=== PATIENT | male | born 1965 | race Caucasian/White ===

== ENCOUNTER 2016-11-21 00:45 | Emergency (ER) | payer OTHER ==
[~2016-11-21] VITALS: Ht 170.1 cm; Wt 81.6 kg
[~2016-11-21 00:45] MED LIST: 'PARAFON FORTE500 M1 PO; AMOXICILLIN500 MG PO; ANAPROX DS550 MG PO; CLINDAMYCIN HC300 MG PO; CYCLOBENZAPRINE10 MG PO; CYMBALTA60 MG PO; FLEXERIL10 MG PO; HYDROCODONE BIT1 T11 PO; MOTRIN800 MG PO; Motrin,Rufen800 MG PO; NAPROSYN500 MG PO; NEURONTIN100 MG PO; NEURONTIN400 MG PO; PENICILLIN VK500 MG PO; PERCOCET 325 MG1 TA5 PO; PREDNICOT20 MG PO; REQUIP0.25 M1 PO; ROBAXIN750 MG PO; TRAMADOL HCL50 MG PO; ULTRAM50 MG PO; VICODIN 5/500 505 MG PO; VICODIN ES 7501 TAB PO
[2016-11-21] MEDS ORDERED: Orphenadrine C100 MG PO (01:08)
[2016-11-21] MEDS ORDERED: ULTRAM50 MG PO (01:08)
[2016-11-21] MEDS ORDERED: Motrin,Rufen800 MG PO (01:08)
[2016-12-07] MEDS ORDERED: Orphenadrine C100 MG PO (00:42)
[2016-12-07] MEDS ORDERED: ULTRAM50 MG PO (00:42)
[2016-12-07] MEDS ORDERED: Motrin,Rufen800 MG PO (00:42)
[2016-12-13] MEDS ORDERED: NAPROSYN500 MG PO (10:27)
[2016-12-13] MEDS ORDERED: 'PARAFON FORTE500 M1 PO (10:27)
== END 2016-11-21 01:17 | disposition home or self-care (01) ==
LOC: ED 00:45
DX: S39.012A Strain of muscle, fascia and tendon of lower back, initial encounter (principal); D64.9 Anemia, unspecified; F32.9 Major depressive disorder, single episode, unspecified; Z88.6 Allergy status to analgesic agent; X58.XXXA Exposure to other specified factors, initial encounter; Y93.9 Activity, unspecified; Y92.9 Unspecified place or not applicable; Y99.9 Unspecified external cause status

== ENCOUNTER → 2017-02-03 | Outpatient (CLI) | payer OTHER ==
[~2017-02-03] MED LIST changes: +Orphenadrine C100 MG PO
== END | disposition home or self-care (01) ==
LOC: RAD 11:07
DX: S13.9XXA Sprain of joints and ligaments of unspecified parts of neck, initial encounter (principal); M48.02 Spinal stenosis, cervical region; X58.XXXA Exposure to other specified factors, initial encounter; Y93.89 Activity, other specified; Y92.89 Other specified places as the place of occurrence of the external cause; Y99.8 Other external cause status

== ENCOUNTER 2017-03-07 09:18 | Emergency (ER) | payer OTHER ==
[~2017-03-07] VITALS: Ht 170.1 cm; Wt 72.6 kg
[2017-03-07] MEDS ORDERED: MEDROL DOSEPAK4 MG PO (10:33)
[2017-03-07] MEDS ORDERED: CYCLOBENZAPRINE5 M3 PO (10:33)
[2017-03-07] MEDS ORDERED: ULTRAM50 MG PO (10:33)
== END 2017-03-07 10:51 | disposition home or self-care (01) ==
LOC: ED 09:18
DX: G89.29 Other chronic pain (principal); M54.2 Cervicalgia; Z90.49 Acquired absence of other specified parts of digestive tract; Z88.6 Allergy status to analgesic agent

== ENCOUNTER 2017-04-11 09:45 | Emergency (ER) | payer OTHER ==
[~2017-04-11] VITALS: Wt 72.6 kg
[~2017-04-11 09:45] MED LIST changes: +CYCLOBENZAPRINE5 M3 PO; +MEDROL DOSEPAK4 MG PO
[2017-04-11] MEDS ORDERED: Motrin,Rufen800 MG PO (11:20)
== END 2017-04-11 11:37 | disposition home or self-care (01) ==
LOC: ED 09:45
DX: S83.91XA Sprain of unspecified site of right knee, initial encounter (principal); S93.401A Sprain of unspecified ligament of right ankle, initial encounter; Z88.6 Allergy status to analgesic agent; X58.XXXA Exposure to other specified factors, initial encounter; Y93.9 Activity, unspecified; Y92.89 Other specified places as the place of occurrence of the external cause; Y99.9 Unspecified external cause status

== ENCOUNTER 2018-01-25 20:15 | Emergency (ER) | payer OTHER ==
[~2018-01-25] VITALS: Ht 170.1 cm; Wt 72.6 kg
[2018-01-25] MEDS ORDERED: ROBAXIN500 M1 PO (20:51)
== END 2018-01-25 20:59 | disposition home or self-care (01) ==
LOC: ED 20:15
DX: M62.838 Other muscle spasm (principal); M54.2 Cervicalgia; G89.29 Other chronic pain; Z88.8 Allergy status to other drugs, medicaments and biological substances; Z90.49 Acquired absence of other specified parts of digestive tract

== ENCOUNTER 2018-03-19 15:56 | Emergency (ER) | payer OTHER ==
[~2018-03-19] VITALS: Ht 170.1 cm; Wt 81.6 kg
[~2018-03-19 15:56] MED LIST changes: +ROBAXIN500 M1 PO
[2018-03-19] MEDS ORDERED: CYCLOBENZAPRINE10 MG PO (17:59)
== END 2018-03-19 18:14 | disposition home or self-care (01) ==
LOC: ED 15:56
DX: G89.29 Other chronic pain (principal); M54.2 Cervicalgia; M54.5 Low back pain; Z90.49 Acquired absence of other specified parts of digestive tract; Z88.1 Allergy status to other antibiotic agents

== ENCOUNTER 2018-06-11 13:34 | Emergency (ER) | payer SELFPAY ==
[~2018-06-11] VITALS: Ht 170.1 cm; Wt 81.6 kg
[2018-06-11] MEDS ORDERED: AMOXICILLIN500 M2 PO (14:01)
== END 2018-06-11 14:05 | disposition home or self-care (01) ==
LOC: ED 13:34
DX: K08.89 Other specified disorders of teeth and supporting structures (principal); Z88.6 Allergy status to analgesic agent

== ENCOUNTER 2019-07-22 10:40 | Emergency (ER) | payer SELFPAY ==
[~2019-07-22] VITALS: Ht 170.1 cm; Wt 81.6 kg
[~2019-07-22 10:40] MED LIST changes: +AMOXICILLIN500 M2 PO
[2019-07-22] MEDS ORDERED: NORCO 10-325 T1 EACH PO (12:59)
== END 2019-07-22 13:08 | disposition home or self-care (01) ==
LOC: ED 10:40
DX: S22.31XA Fracture of one rib, right side, initial encounter for closed fracture (principal); G89.29 Other chronic pain; E78.1 Pure hyperglyceridemia; G62.9 Polyneuropathy, unspecified; Z88.1 Allergy status to other antibiotic agents; Z79.899 Other long term (current) drug therapy; Z79.2 Long term (current) use of antibiotics; Z90.49 Acquired absence of other specified parts of digestive tract; W18.39XA Other fall on same level, initial encounter; Y93.89 Activity, other specified; Y92.89 Other specified places as the place of occurrence of the external cause; Y99.8 Other external cause status

== ENCOUNTER 2020-12-08 19:18 | Emergency (ER) | payer SELFPAY ==
[~2020-12-08] VITALS: Ht 170.1 cm; Wt 81.6 kg
[~2020-12-08 19:18] MED LIST changes: +NORCO 10-325 T1 EACH PO
[2020-12-08] MEDS ORDERED: NAPROSYN500 MG PO (20:29)
== END 2020-12-08 20:48 | disposition home or self-care (01) ==
LOC: ED 19:18
DX: S60.222A Contusion of left hand, initial encounter (principal); Z88.1 Allergy status to other antibiotic agents; Z79.899 Other long term (current) drug therapy; Z79.2 Long term (current) use of antibiotics; Z90.49 Acquired absence of other specified parts of digestive tract; W00.0XXA Fall on same level due to ice and snow, initial encounter; Y93.89 Activity, other specified; Y92.89 Other specified places as the place of occurrence of the external cause; Y99.8 Other external cause status

== ENCOUNTER 2021-08-29 19:51 | Emergency (ER) | payer SELFPAY ==
[~2021-08-29] VITALS: Ht 170.1 cm; Wt 81.6 kg
[2021-08-29 23:30] LABS: BASO # 0.1 10*3/uL (0.0-0.1); BASO % 1.6 % (0.0-1.0); EOS # 0.4 10*3/uL (0.0-0.4); EOS % 6.5 % (1.0-4.0); HEMATOCRIT 41.7 % (42.0-52.0); LYMPH # 2.1 10*3/uL (1.3-4.4); LYMPH % 38.5 % (27.0-41.0); MEAN CELL VOLUME 94.3 fl (80.0-94.0); MEAN CORPUSCULAR HGB 31.2 pg (27.0-31.0); MEAN CORPUSCULAR HGB CONC 33.1 g/dl (33.0-37.0); MEAN PLATELET VOLUME 10.9 fl (9.6-12.3); MONO # 0.5 10*3/uL (0.1-1.0); MONO % 8.3 % (3.0-9.0); NEUT # 2.5 10*3/uL (2.3-7.9); NEUT % 44.9 % (47.0-73.0); PLATELET COUNT AUTOMATED 136 10*3/uL (130-400); RED BLOOD COUNT 4.42 10*6/uL (4.50-5.90); RED CELL DISTRI WIDTH 13.2 % (0-14.5); WHITE BLOOD COUNT 5.5 10*3/uL (4.8-10.8)
[2021-08-29 23:49] LABS: ALBUMIN 3.1 gm/dl (3.1-4.5); ALKALINE PHOSPHATASE 96 U/L (45-117); BUN 5 mg/dl (7-24); CHLORIDE 104 mmol/L (98-107); CREATININE 0.81 mg/dL (0.70-1.30); LIPASE 107 U/L (73-393); POTASSIUM 3.6 mmol/L (3.5-5.1); SGOT/AST 77 IU/L (3-35); SGPT/ALT 80 U/L (12-78); SODIUM 139 mmol/L (136-145); TOTAL PROTEIN 7.8 gm/dL (6.4-8.2)
[2021-08-29 23:52] LABS: TROPONIN I < 0.015 ng/ml (<0.045)
[2021-08-30 00:07] LABS: BILIRUBIN Negative (Negative); BLOOD Negative (Negative); CLARITY Clear (Clear); COLOR Yellow (Yellow); GLUCOSE 2+ (Negative); KETONE Trace (Negative); LEUKO ESTERASE Negative (Negative); NITRITE Negative (Negative); UROBILINOGEN 0.2 E.U./dl (0.0-1.0)
[2021-08-30] MEDS ORDERED: PREDNISONE20 M1 PO (02:13)
[2021-08-30] MEDS ORDERED: METHOCARBAMOL500 M1 PO (02:13)
[2021-08-30] MEDS ORDERED: HYDROCODON-ACE1 EACH PO (02:13)
== END 2021-08-30 02:19 | disposition home or self-care (01) ==
LOC: ED 19:51
PROVIDERS: Emergency Medicine
DX: M54.16 Radiculopathy, lumbar region (principal); M62.830 Muscle spasm of back; Z88.1 Allergy status to other antibiotic agents; Z79.899 Other long term (current) drug therapy; Z79.2 Long term (current) use of antibiotics; Z90.49 Acquired absence of other specified parts of digestive tract

== ENCOUNTER 2021-10-07 08:32 | Emergency (ER) | payer OTHER ==
[~2021-10-07 08:32] MED LIST changes: +HYDROCODON-ACE1 EACH PO; +METHOCARBAMOL500 M1 PO; +PREDNISONE20 M1 PO
[2021-10-07] MEDS ORDERED: TYLENOL EXTRA500 MG PO (11:09)
== END 2021-10-07 11:47 | disposition home or self-care (01) ==
LOC: ED 08:32
DX: S60.211A Contusion of right wrist, initial encounter (principal); S50.01XA Contusion of right elbow, initial encounter; S40.011A Contusion of right shoulder, initial encounter; W18.39XA Other fall on same level, initial encounter; Y93.89 Activity, other specified; Y92.89 Other specified places as the place of occurrence of the external cause; Y99.8 Other external cause status

== ENCOUNTER 2021-12-27 15:18 | Emergency (ER) | payer OTHER ==
[~2021-12-27] VITALS: Ht 170.1 cm; Wt 81.6 kg
[~2021-12-27 15:18] MED LIST changes: +TYLENOL EXTRA500 MG PO
== END 2021-12-27 16:44 | disposition home or self-care (01) ==
LOC: ED 15:18
DX: H11.31 Conjunctival hemorrhage, right eye (principal); Z90.49 Acquired absence of other specified parts of digestive tract

== ENCOUNTER 2022-11-17 07:58 | Inpatient (IN) | payer OTHER ==
[~2022-11-17] VITALS: Ht 170.2 cm; Wt 83.7 kg
[2022-11-17] MEDS ORDERED: LEXAPRO20 MG PO (08:04)
[2022-11-17 08:05] VITALS: BP 156/99
[2022-11-17 08:44] LABS: BASO # 0.1 10*3/uL (0.0-0.1); BASO % 1.3 % (0.0-1.0); EOS # 0.4 10*3/uL (0.0-0.4); EOS % 7.2 % (1.0-4.0); HEMATOCRIT 44.2 % (42.0-52.0); LYMPH # 2.3 10*3/uL (1.3-4.4); LYMPH % 38.7 % (27.0-41.0); MEAN CELL VOLUME 90.9 fl (80.0-94.0); MEAN CORPUSCULAR HGB 30.7 pg (27.0-31.0); MEAN CORPUSCULAR HGB CONC 33.7 g/dl (33.0-37.0); MEAN PLATELET VOLUME 10.9 fl (9.6-12.3); MONO # 0.5 10*3/uL (0.1-1.0); MONO % 8.2 % (3.0-9.0); NEUT # 2.6 10*3/uL (2.3-7.9); NEUT % 44.4 % (47.0-73.0); PLATELET COUNT AUTOMATED 108 10*3/uL (130-400); RED BLOOD COUNT 4.86 10*6/uL (4.50-5.90); RED CELL DISTRI WIDTH 13.4 % (0-14.5); WHITE BLOOD COUNT 5.9 10*3/uL (4.8-10.8)
[2022-11-17 08:56] LABS: ALKALINE PHOSPHATASE 101 U/L (46-116); BUN 8 mg/dl (9-23); CHLORIDE 100 mmol/L (98-107); CPK 62 U/L (34-171); ETHYL ALCOHOL 3.9 mg/dl (<3); POTASSIUM 3.9 mmol/L (3.4-5.1); SGPT/ALT 58 U/L (10-49); TOTAL PROTEIN 8.2 gm/dL (6.0-8.0)
[2022-11-17 11:04] LABS: URINE AMPHETAMINES Negative (1000ng/ml); URINE BARBITURATES Negative (200ng/ml); URINE BENZODIAZEPINES Negative (200ng/ml); URINE CANNABINOIDS (THC) Negative (50ng/ml); URINE COCAINE Negative (300ng/ml); URINE METHADONE Negative (300ng/ml); URINE OPIATES Negative (300ng/ml); URINE PHENCYCLIDINE Negative (25ng/ml)
[2022-11-17 12:30] VITALS: BP 148/96
[2022-11-17 16:00] VITALS: BP 121/79
[2022-11-17 20:00] VITALS: BP 145/79
[2022-11-18] VITALS: BP 167/89
[2022-11-18 07:52] LABS: ALKALINE PHOSPHATASE 83 U/L (46-116); BUN 8 mg/dl (9-23); CHLORIDE 101 mmol/L (98-107); POTASSIUM 3.7 mmol/L (3.4-5.1); SGPT/ALT 53 U/L (10-49); TOTAL PROTEIN 7.2 gm/dL (6.0-8.0)
[2022-11-18 08:00] VITALS: BP 128/89
[2022-11-18 12:00] VITALS: BP 122/74
[2022-11-18 16:00] VITALS: BP 126/75
[2022-11-18 20:00] VITALS: BP 118/73
[2022-11-19] VITALS: BP 144/89
[2022-11-19 08:00] VITALS: BP 120/71
[2022-11-19 12:00] VITALS: BP 120/71
[2022-11-19 16:00] VITALS: BP 141/83
[2022-11-19 20:00] VITALS: BP 132/71
[2022-11-20] VITALS: BP 121/78
[2022-11-20 06:25] LABS: BASO # 0.1 10*3/uL (0.0-0.1); BASO % 1.2 % (0.0-1.0); EOS # 0.3 10*3/uL (0.0-0.4); EOS % 8.2 % (1.0-4.0); HEMATOCRIT 38.1 % (42.0-52.0); LYMPH # 1.6 10*3/uL (1.3-4.4); LYMPH % 38.6 % (27.0-41.0); MEAN CELL VOLUME 92.7 fl (80.0-94.0); MEAN CORPUSCULAR HGB 30.7 pg (27.0-31.0); MEAN CORPUSCULAR HGB CONC 33.1 g/dl (33.0-37.0); MEAN PLATELET VOLUME 11.1 fl (9.6-12.3); MONO # 0.4 10*3/uL (0.1-1.0); MONO % 9.7 % (3.0-9.0); NEUT # 1.7 10*3/uL (2.3-7.9); NEUT % 42.1 % (47.0-73.0); PLATELET COUNT AUTOMATED 74 10*3/uL (130-400); RED BLOOD COUNT 4.11 10*6/uL (4.50-5.90); RED CELL DISTRI WIDTH 13.8 % (0-14.5)
[2022-11-20 06:41] LABS: ALKALINE PHOSPHATASE 72 U/L (46-116); BUN 7 mg/dl (9-23); CHLORIDE 102 mmol/L (98-107); POTASSIUM 3.5 mmol/L (3.4-5.1); SGPT/ALT 66 U/L (10-49); TOTAL PROTEIN 6.4 gm/dL (6.0-8.0)
[2022-11-20 08:00] VITALS: BP 133/88
[2022-11-20] MEDS ORDERED: VITAMIN B-1100 M1 PO (11:24)
[2022-11-20] MEDS ORDERED: HYDROCODONE-AC1 EAC1 PO (11:24)
== END 2022-11-20 13:23 | disposition home or self-care (01) | DRG 897 ==
LOC: ED 07:58 → 4E 11:20 → EDHOLD 11:20 → 4E 11:36
PROVIDERS: Registered Nurse; Student in an Organized Health Care Education/Training Program; ADMIT Internal Medicine; ATTEND Internal Medicine
DX: F10.139 Alcohol abuse with withdrawal, unspecified (principal); E87.1 Hypo-osmolality and hyponatremia; Z20.822 Contact with and (suspected) exposure to COVID-19; F32.A Depression, unspecified; F17.210 Nicotine dependence, cigarettes, uncomplicated; F32.9 Major depressive disorder, single episode, unspecified; R73.9 Hyperglycemia, unspecified; F41.9 Anxiety disorder, unspecified; R74.01 Elevation of levels of liver transaminase levels; E78.1 Pure hyperglyceridemia; M54.9 Dorsalgia, unspecified; G89.29 Other chronic pain; Z88.8 Allergy status to other drugs, medicaments and biological substances; Z82.49 Family history of ischemic heart disease and other diseases of the circulatory system; Z81.8 Family history of other mental and behavioral disorders

== ENCOUNTER 2023-06-24 20:06 | Emergency (ER) | payer MEDICAID ==
[~2023-06-24] VITALS: Ht 170.1 cm; Wt 83.5 kg
[~2023-06-24 20:06] MED LIST changes: +HYDROCODONE-AC1 EAC1 PO; +LEXAPRO20 MG PO; +VITAMIN B-1100 M1 PO
[2023-06-24] MEDS ORDERED: NAPROSYN500 MG PO (22:38)
== END 2023-06-24 22:48 | disposition home or self-care (01) ==
LOC: ED 20:06
DX: S22.31XA Fracture of one rib, right side, initial encounter for closed fracture (principal); Z88.1 Allergy status to other antibiotic agents; Z79.899 Other long term (current) drug therapy; Z90.49 Acquired absence of other specified parts of digestive tract; W18.39XA Other fall on same level, initial encounter; Y93.89 Activity, other specified; Y92.89 Other specified places as the place of occurrence of the external cause; Y99.8 Other external cause status

== ENCOUNTER 2024-11-18 14:39 | Emergency (ER) | payer MEDICAID ==
[~2024-11-18] VITALS: Ht 170.1 cm; Wt 93.0 kg
[2024-11-18 16:05] LABS: BASO % 0.8 % (0.0-1.0); EOS # 0.1 10*3/uL (0.0-0.4); HEMATOCRIT 32.8 % (42.0-52.0); MEAN CELL VOLUME 86.3 fl (80.0-94.0); MEAN CORPUSCULAR HGB 27.1 pg (27.0-31.0); MEAN CORPUSCULAR HGB CONC 31.4 g/dl (33.0-37.0); MEAN PLATELET VOLUME 11.5 fl (9.6-12.3); MONO # 0.3 10*3/uL (0.1-1.0); MONO % 9.3 % (3.0-9.0); NEUT # 2.3 10*3/uL (2.3-7.9); NEUT % 61.3 % (47.0-73.0); PLATELET COUNT AUTOMATED 91 10*3/uL (130-400); RED CELL DISTRI WIDTH 14.2 % (0-14.5); WHITE BLOOD COUNT 3.7 10*3/uL (4.8-10.8)
[2024-11-18 16:14] LABS: ACT PARTIAL THROMBO TIME 31.1 SECONDS (20.0-32.1)
[2024-11-18 16:28] LABS: ALKALINE PHOSPHATASE 101 U/L (46-116); BUN 8 mg/dl (9-23); CHLORIDE 101 mmol/L (98-107); LIPASE 30 U/L (12-53); SGPT/ALT 23 U/L (5-49); TOTAL PROTEIN 7.6 gm/dL (6.0-8.0)
[2024-11-18 18:33] LABS: BILIRUBIN Negative (Negative); BLOOD Negative (Negative); CLARITY Clear (Clear); COLOR Dark Yellow (Yellow); GLUCOSE Negative (Negative); KETONE Trace (Negative); LEUKO ESTERASE Negative (Negative); NITRITE Negative (Negative); PH 5.5 (4.5-8.0); SPECIFIC GRAVITY 1.025 (1.001-1.030); UROBILINOGEN 0.2 E.U./dl (0.0-1.0)
[2024-11-18 18:45] LABS: MUCOUS 2+
[2024-11-18 18:46] LABS: EPITHELIAL CELLS 0-2; WBC 0-2 wbc/hpf (0-5)
[2024-11-18] MEDS ORDERED: VITAMIN B-1100 M2 PO (19:58)
[2024-11-18] MEDS ORDERED: MAGNESIUM400 MG PO (20:02)
== END 2024-11-18 19:34 | disposition home or self-care (01) ==
LOC: ED 14:39
PROVIDERS: Internal Medicine
DX: R44.0 Auditory hallucinations (principal); R44.1 Visual hallucinations; F32.A Depression, unspecified; E11.9 Type 2 diabetes mellitus without complications; I10 Essential (primary) hypertension; R41.0 Disorientation, unspecified; R10.2 Pelvic and perineal pain; F10.10 Alcohol abuse, uncomplicated; F17.220 Nicotine dependence, chewing tobacco, uncomplicated; Z88.8 Allergy status to other drugs, medicaments and biological substances; Z90.49 Acquired absence of other specified parts of digestive tract; Z98.890 Other specified postprocedural states